=== PATIENT | male | born 1945 | race Two or more races ===

== ENCOUNTER 2021-12-13 11:48 | Inpatient (IN) | payer MEDICARE, BC ==
[~2021-12-13] VITALS: Ht 170.2 cm; Wt 48.5 kg
--- NOTE | 2021-12-13 11:51 | NUR ---
TO ER BED 3, BIB RA 99,TRIP/FALL WHILE WALKING IN A STREET,C/O R HIP PAIN AND ABRASIONS TO BOTH HANDS, AAOX3, BREATHING EVEN AND NON LABORED, CONNECTED TO MONITOR
--- NOTE | 2021-12-13 12:04 | NUR ---
JAYDEN [phone]
--- NOTE | 2021-12-13 12:04 | NUR ---
ORTHOPAEDIC SURGEON AT BEDSIDE FOR XRAY
--- NOTE | 2021-12-13 13:26 | NUR ---
TAKEN TO CT VIA [facility]
--- NOTE | 2021-12-13 14:05 | NUR ---
ORTHO CALLED DR. VACA SPEAKING WITH DR. CHAMORRO.
--- NOTE | 2021-12-13 14:19 | NUR ---
COVID SWAB DONE AND SENT TO LAB
[2021-12-13] MEDS ORDERED: CYAN-51 PO (14:20)
[2021-12-13] MEDS ORDERED: ATOR80TA PO (14:20)
[2021-12-13] MEDS ORDERED: APIX2.5T PO (14:20)
[2021-12-13] MEDS ORDERED: ASPI-1169 PO (14:20)
--- NOTE | 2021-12-13 14:25 | NUR ---
MOVE SHEET SUBMITTED
--- NOTE | 2021-12-13 14:27 | NUR ---
[facility] CALLED SUPERVISOR COMMUNICATIONS AND SIGNALS PAGED.
[2021-12-13] MEDS ORDERED: MORPHINE SULFATE INJ 4 MG/ML DISP.SYRIN ONE (14:34)
[2021-12-13] MEDS ORDERED: ONDANSETRON HCL/PF 4 MG/2 ML VIAL ONE (14:34)
--- NOTE | 2021-12-13 14:51 | NUR ---
[facility] CALLED NATURAL RESOURCES TECHNICIAN PAGED.
[2021-12-13] MEDS ORDERED: ONDANSETRON HCL/PF 4 MG/2 ML VIAL IV ONE (15:00)
[2021-12-13] MEDS ORDERED: MORPHINE SULFATE INJ 2 MG/ML DISP.SYRIN IV ONE (15:00)
--- NOTE | 2021-12-13 15:00 | NUR ---
X-RAY TECH AT THE BEDSIDE
[2021-12-13 15:08] LABS: BASOPHILS % (AUTO) 0.3 % (0.0-2.0); EOSINOPHILS % (AUTO) 0.4 % (0.0-6.0); HEMATOCRIT 36 % (39-51); LYMPHOCYTES # (AUTO) 0.6 K/uL (0.8-4.8); LYMPHOCYTES % (AUTO) 7.1 % (20.0-44.0); MEAN CORPUSCULAR HGB CONC 33 g/dl (31.0-36.0); MEAN CORPUSCULAR VOLUME 93 fL (80-96); MONOCYTES # (AUTO) 0.5 K/uL (0.1-1.30); MONOCYTES % (AUTO) 5.3 % (2.0-12.0); NEUTROPHILS # (AUTO) 7.6 K/uL (1.8-8.9); NEUTROPHILS % (AUTO) 86.9 % (43.0-81.0); PLATELET COUNT (AUTO) 176 K/uL (150-450); RED BLOOD CELL COUNT(AUTO) 3.88 MIL/uL (4.5-6.0); WHITE BLOOD COUNT (AUTO) 8.7 K/uL (4.3-11.0)
--- NOTE | 2021-12-13 15:13 | NUR ---
ROOM 120-1
[2021-12-13 15:26] LABS: CALCIUM, SERUM 8.1 mg/dL (8.5-10.1); CREATININE 1.1 mg/dL (0.6-1.3)
--- NOTE | 2021-12-13 15:29 | NUR ---
REPORT GIVEN TO NURSE RIZVI FOR CIERA
--- NOTE | 2021-12-13 15:55 | NUR ---
ROOM UPDATE 113-1
[2021-12-13 16:00] VITALS: BP 120/57
--- NOTE | 2021-12-13 16:00 | NUR ---
THE PATIENT IS TRANSFERED TO ROOM 113-1 PER POLICY
[2021-12-13] MEDS ORDERED: MAG HYDROX/AL HYDROX/SIMETH 30 ML UDC PO PRN (17:00)
[2021-12-13] MEDS ORDERED: HYDROCODONE/APAP 10/325MG TABLET PO PRN (17:00)
[2021-12-13] MEDS ORDERED: MORPHINE SULFATE INJ 2 MG/ML DISP.SYRIN IV PRN (17:00)
[2021-12-13] MEDS ORDERED: MAGNESIUM HYDROXIDE 30 ML UDC PO PRN (17:00)
[2021-12-13] MEDS ORDERED: ONDANSETRON HCL/PF 4 MG/2 ML VIAL IVP PRN (17:00)
[2021-12-13] MEDS ORDERED: ACETAMINOPHEN 325 MG TABLET PO PRN (17:00)
--- NOTE | 2021-12-13 17:25 | NUR ---
ADMITTED 76 YEAR OLD MALE PT FROM ER VIA GURNEY. WITH IV ACCESS ON RT FOREARM G#20 PATENT AND FLUSHING WELL. VS TAKEN AND RECORDED. AFEBRILE. ON RA WITH AN O2 SAT OF 98%. NO SOB OR DISTRESS AT THIS TIME. TRANSFERRED TO BED SAFELY, COMPLETE ASSESSMENT PERFORMED. ALL BELONGINGS CHECKED AND RECORDED. ALL SAFETY MEASURES IN PLACE. HOB ELEVATED. ORIENTED TO ROOM AND USE OF CALL LIGHT, PLACED WITHIN REACH. BED ON LOWEST POSITION AND LOCKED. WILL MONITOR AND PROVIDE COMFORT AND CARE UNTIL END OF SHIFT AND WILL ENDORSE TO NEXT NURSE ON DUTY FOR CONTINUITY OF CARE.
[2021-12-13] MEDS: APIXABAN 2.5 MG TABLET PO SCH (17:52)
[2021-12-13] MEDS: IV NS 0.9% 1,000 ML IV PRN (17:54)
--- NOTE | 2021-12-13 18:57 | NUR ---
NEEDS ATTENDED. MEDICATION GIVEN ORDERED. MED RECON REQUEST SENT TO MED RECON NURSE. WILL ENDORSE TO NEXT NURSE ON DUTY FOR CONTINUITY OF CARE.
--- NOTE | 2021-12-13 19:15 | NUR ---
RN NOTES RECEIVED PT FOR CONTINUITY OF CARE. PATIENT A/OX4 IN NO S/SX OF ACUTE DISTRESS AT THIS TIME; CURRENTLY ON ROOM AIR; WITH 02 SAT 98% AT THIS TIME.WITH IV ACCESS PATENT, INTACT AND FLUSHING WELL. WITH RUNNING NS@75CC/HR. WILL ENSURE SAFETY MEASURES WITHIN THE SHIFT. PATIENT BED ALARM IS ON. HEAD OF BED ELEVATED. BED IS LOCKED, IN LOWEST POSITION AND SIDE RAILS UP. CALL LIGHT WITHIN REACH OF THE PATIENT.WILL CONTINUE TO MONITOR AND REASSESS FOR ANY CHANGES AND WILL CARRY OUT ANY ONGOING AND ACTIVE MD ORDER.
[2021-12-13 20:00] VITALS: BP 121/71
[2021-12-13] MEDS: ATORVASTATIN 40 MG TABLET PO SCH (21:11)
[2021-12-14 04:00] VITALS: BP 97/65
--- NOTE | 2021-12-14 04:00 | NUR ---
RN NOTES PATIENT REMAINED TO BE IN NO SIGNS OF ACUTE RESPIRATORY DISTRESS , SAFE ENVIRONMENT MAINTAINED FOR PT. AM PATIENT CARE ASSISTANCE RENDERED. WILL CONTINUE TO MONITOR AND REASSESS FOR ANY CHANGES THROUGHOUT THE SHIFT.
[2021-12-14 06:17] LABS: BASOPHILS % (AUTO) 0.5 % (0.0-2.0); EOSINOPHILS % (AUTO) 1.4 % (0.0-6.0); HEMATOCRIT 33 % (39-51); HEMOGLOBIN 10.9 g/dL (13.5-17.5); LYMPHOCYTES # (AUTO) 0.5 K/uL (0.8-4.8); LYMPHOCYTES % (AUTO) 10.1 % (20.0-44.0); MEAN CORPUSCULAR HGB CONC 34 g/dl (31.0-36.0); MEAN CORPUSCULAR VOLUME 95 fL (80-96); MONOCYTES # (AUTO) 0.5 K/uL (0.1-1.30); MONOCYTES % (AUTO) 9.4 % (2.0-12.0); NEUTROPHILS # (AUTO) 4.1 K/uL (1.8-8.9); NEUTROPHILS % (AUTO) 78.6 % (43.0-81.0); PLATELET COUNT (AUTO) 140 K/uL (150-450); RED BLOOD CELL COUNT(AUTO) 3.43 MIL/uL (4.5-6.0); WHITE BLOOD COUNT (AUTO) 5.2 K/uL (4.3-11.0)
--- NOTE | 2021-12-14 06:57 | NUR ---
RN CLOSING NOTE: PATIENT REMAINS IN ROOM IN NO SIGNS OF RESPIRATORY DISTRESS, PATIENT STILL ON ROOM AIR ;TOLERATING WELL SATURATING @ >95% SP02. SAFETY MEASURES IMPLEMENTED, BED IN LOWEST POSITION, LOCKED, SIDE RAILS UP, CALL LIGHT WITHIN REACH. ALL NEEDS AND ORDERS ADDRESSED DURING THE SHIFT. IV ACCESS MAINTAINED INTACT, SECURED AND FLUSHING WELL AND IV FLUID RUNNING ORDERED. ALL DUE MEDS GIVEN ORDERED & SCHEDULED ; PATIENT TOLERATED WELL. PATIENT KEPT CLEAN AND COMFORTABLE WITHIN THE SHIFT. PATIENT ENDORSED TO INCOMING SHIFT RN WITH STABLE VITAL SIGN AND FOR CONTINUITY OF CARE.
[2021-12-14] MEDS: IV NS 0.9% 1,000 ML IV PRN (07:03)
--- NOTE | 2021-12-14 07:20 | NUR ---
RN OPENING NOTES RECEIVED PATIENT AWAKE IN BED. A/O X4. ON RA WITH BREATHING EVEN AND UNLABORED. DENIES PAIN AND NO SIGNS OF DISTRESS NOTED AT THIS TIME. RFA G#20 INTACT AND PATENT WITH NS RUNNING @ 70ML/HR. SAFETY PRECAUTIONS IN PLACE. WILL CONTINUE TO MONITOR PATIENT
[2021-12-14 07:28] LABS: CALCIUM, SERUM 8.1 mg/dL (8.5-10.1); MAGNESIUM 2.2 mg/dL (1.8-2.4); PHOSPHORUS 3.5 mg/dL (2.5-4.9); POTASSIUM 4.1 mmol/L (3.5-5.1)
[2021-12-14] MEDS: CYANOCOBALAMIN 500 MCG TABLET PO SCH (08:26)
[2021-12-14] MEDS: PANTOPRAZOLE 40 MG TABLET.DR PO SCH (08:26)
[2021-12-14] MEDS: ASPIRIN 81 MG TAB.CHEW PO SCH (08:26)
[2021-12-14] MEDS: APIXABAN 2.5 MG TABLET PO SCH ×2 (08:27→17:32)
[2021-12-14 08:41] LABS: THYROID STIMULATING HORMONE 2.704 uIU/mL (0.358-3.74)
--- NOTE | 2021-12-14 11:10 | NUR ---
RN NOTES PATIENT SEEN BY EMILY URIBE.
[2021-12-14 12:00] VITALS: BP 100/56
[2021-12-14] MEDS: HYDROCODONE/APAP 5/325MG TABLET PO PRN (14:22)
--- NOTE | 2021-12-14 19:18 | NUR ---
RN NOTES PATIENT IN BED IN STABLE CONDITION. SAFETY PRECAUTIONS IN PLACE. ENDORSED REPORT TO THE POWDER MONKEY NURSE FOR CIERA
[2021-12-14 20:00] VITALS: BP 99/54
[2021-12-14] MEDS: ATORVASTATIN 40 MG TABLET PO SCH (21:43)
[2021-12-15 04:00] VITALS: BP 101/61
[2021-12-15] MEDS: IV NS 0.9% 1,000 ML IV PRN (05:57)
--- NOTE | 2021-12-15 06:36 | NUR ---
RN CLOSING NOTE: PATIENT REMAINS IN ROOM IN NO SIGNS OF RESPIRATORY DISTRESS, PATIENT STILL ON ROOM AIR ;TOLERATING WELL SATURATING @ >95% SP02. PLAN: PAIN MGT, ORTHO CONSULT AND FOR LATERAL TRANSFER TO [facility]; CASE MGT CONSULT IN PLACED TO COORDINATE. SAFETY MEASURES IMPLEMENTED, BED IN LOWEST POSITION, LOCKED, SIDE RAILS UP, CALL LIGHT WITHIN REACH. ALL NEEDS AND ORDERS ADDRESSED DURING THE SHIFT. IV ACCESS MAINTAINED INTACT, SECURED AND FLUSHING WELL AND IV FLUID RUNNING ORDERED. ALL DUE MEDS GIVEN ORDERED & SCHEDULED ; PATIENT TOLERATED WELL. PATIENT KEPT CLEAN AND COMFORTABLE WITHIN THE SHIFT. PATIENT ENDORSED TO INCOMING SHIFT RN WITH STABLE VITAL SIGN AND FOR CONTINUITY OF CARE.
[2021-12-15] MEDS: PANTOPRAZOLE 40 MG TABLET.DR PO SCH (07:30)
[2021-12-15] MEDS: ASPIRIN 81 MG TAB.CHEW PO SCH (09:02)
[2021-12-15] MEDS: CYANOCOBALAMIN 500 MCG TABLET PO SCH (09:02)
[2021-12-15] MEDS: APIXABAN 2.5 MG TABLET PO SCH (09:04)
--- NOTE | 2021-12-15 10:26 | NUR ---
RN OPENING NOTE: PATIENT REMAINS IN ROOM IN NO SIGNS OF RESPIRATORY DISTRESS, PATIENT STILL ON ROOM AIR ;TOLERATING WELL SATURATING AT 99%. MEDICAL SURGICAL STATUS NOTED. SAFETY MEASURES IMPLEMENTED, BED IN LOWEST POSITION, LOCKED, SIDE RAILS UP, CALL LIGHT WITHIN REACH. IV ACCESS MAINTAINED INTACT, SECURED AND FLUSHING WELL AND IV FLUID RUNNING ORDERED. WILL CONTINUE PLAN OF CARE AND ANTICIPATE NEEDS. Addendum: 12/15/21 at 1031 by FIFI LINARES RN TIME OF RN NOTE SHOULD READ 0720, THIS REFLECTS THE TIME REPORT WAS RECEIVED
[2021-12-15 12:00] VITALS: BP 101/61
--- NOTE | 2021-12-15 12:50 | NUR ---
therapeutic case manager winnie called relayed family of patient wants him discharge,
--- NOTE | 2021-12-15 12:51 | NUR ---
dr. maya notified and ok to discharge patient and continue home meds.primary rn notified.
--- NOTE | 2021-12-15 12:51 | NUR ---
per cm family will bring pt. to [facility].
[2021-12-15] MEDS: HYDROCODONE/APAP 5/325MG TABLET PO PRN (13:05)
--- NOTE | 2021-12-15 13:38 | NUR ---
PATIENT HAS BEEN DISCHARGED HOME. IV ACCESS REMOVED, NO BLEEDING NOTED. HOSPITAL ID BAND REMOVED. BELONGINGS LIST AND DISCHARGE FORMS SIGNED. ALL BELONGINGS ACCOUNTED FOR. PATIENT WAS WHEELED TO THE FRONT OF THE BUILDING WHERE HE WAS PICKED UP BY HIS IN A PRIVATE VEHICLE. PATIENT WAS ASSISTED INTO THE VEHICLE AND LEFT HOSPITAL GROUNDS IN STABLE CONDITION.
== END 2021-12-15 13:35 | disposition left against medical advice (07) | DRG 536 ==
LOC: ER 11:55 → MEDSG1 15:28
DX: S32.810A Multiple fractures of pelvis with stable disruption of pelvic ring, initial encounter for closed fracture (principal); W01.0XXA Fall on same level from slipping, tripping and stumbling without subsequent striking against object, initial encounter; Y92.480 Sidewalk as the place of occurrence of the external cause; Z20.822 Contact with and (suspected) exposure to COVID-19; Z95.0 Presence of cardiac pacemaker; Z79.01 Long term (current) use of anticoagulants; Z79.82 Long term (current) use of aspirin; Y93.01 Activity, walking, marching and hiking; D69.6 Thrombocytopenia, unspecified; Z53.29 Procedure and treatment not carried out because of patient's decision for other reasons; E78.5 Hyperlipidemia, unspecified; D64.9 Anemia, unspecified; R79.89 Other specified abnormal findings of blood chemistry
CPT/HCPCS: 36415; 71045-TC; 72170-TC; 72192-TC; 73502; 80048-TC; 80061-TC; 83735-TC; 84100-TC; 84443-TC; 85025-TC; 87081-TC; 97112-TC; 97530-TC; A6403; C9803; G0378; J2270; J2405; J7030; J7120